=== PATIENT | male | born 1975 | race Caucasian/White ===

== ENCOUNTER → 2017-10-30 17:11 | Emergency (ER) | payer BC ==
[~2017-10-30 17:11] MED LIST: Amoxicillin/Clavulanate TAB* 875 MG PO ONE; Tetan/Diph/Pertus SYR(Tdap)* 0.5 ML SYR(BOOSTRIX) use SYR IM ONE
--- NOTE | 2017-10-30 17:35 | ED ---
Laceration/Wound HPI - HPI Summary HPI Summary: This patient is a 42 year old M [facility] [place] [place] by a woman with a chief complaint of left 5th finger laceration that occurred 3 hours ago. Pt was holding onto a fishing wire and it slid and cut his left hand. Pt reports that he could see bone at the time. The patient rates the pain 7/10 in severity. At the time of the injury, the pt applied antibiotic ointment and wrapped it up tightly. Pt stated that his last tetanus was just over 5 years ago and requests another one. No SHx of tobacco or EtOH. No other injuries reported. - History of Current Complaint Stated Complaint: LT HAND LACERATION Time Seen by Provider: 10/30/17 17:23 Hx Obtained From: Patient Mechanism of Injury: Sharp/Blunt Trauma - left pinkey Onset/Duration: Sudden Onset Onset Severity: Moderate Current Severity: Moderate Pain Intensity: 7 Pain Scale Used: 0-10 Numeric Associated Signs & Symptoms: Bruising - Allergy/Home Medications Allergies/Adverse Reactions: Allergies Allergy/AdvReac Type Severity Reaction Status Date / Time citalopram [From Celexa] Allergy Palpitation Verified 10/30/17 17:16 s morphine Allergy Nausea And Verified 10/30/17 17:16 Vomiting PMH/Surg Hx/FS Hx/Imm Hx History: Denies: Hx Dialysis Musculoskeletal History: Reports: Other Musculoskeletal History - previous right finger laceration EENT History: Denies: Hx Deafness Neurological History: Denies: Hx Dementia Infectious Disease History: No Infectious Disease History: Denies: Traveled Outside the [place] in Last 30 Days - Social History Alcohol Use: None Hx Substance Use: No Hx Tobacco Use: No Smoking Status (MU): Never Smoked Tobacco Review of Systems Positive: Other - left hand laceration Positive: Bruising - left hand All Other Systems Reviewed And Are Negative: Yes Physical Exam - Summary Physical Exam Summary: Appearance: Well appearing, no pain distress Skin: warm, dry, reflects adequate perfusion. 2 cm linear laceration in the volar DIP crease of the left small finger, no tendon injury. Intact tendon function. Minimal active bleeding. Head/face: normal Eyes: EOMI, JOHNNY ENT: normal Neck: supple, non-tender Respiratory: CTA, breath sounds present. Lungs clear. Cardiovascular: Pulses symmetrical . Tachycardic. Abdomen: non-tender, soft Bowel Sounds: present Musculoskeletal: normal, strength/ROM intact. Neuro: normal, sensory motor intact, A&Ox3 Triage Information Reviewed: Yes Vital Signs On Initial Exam: Initial Vitals Temp Pulse Resp BP Pulse Ox 98.4 F 103 18 164/106 97 10/30/17 17:13 10/30/17 17:13 10/30/17 17:13 10/30/17 17:13 10/30/17 17:13 Vital Signs Reviewed: Yes Procedures - Laceration/Wound Repair 1 Location: upper extremity - left pinkey Description: Linear - 2 cm Anesthesia: 1.0%, Lido - 6cc Length, Depth and Shape: 2cm Irrigated w/ Saline (ccs): 1,000 Laceration/Wound Explored: clean Suture Type: Prolene - 4-O (2) 1 horozontal mattress, 1 simple interrupted, Vicryl - 4-O (2) Number of Sutures: 4 Layer Closure?: Yes Sterile Dressing Applied?: Yes - zeroform gauze, 2 gauze over that Diagnostics - Vital Signs Vital Signs Temp Pulse Resp BP Pulse Ox 10/30/17 17:13 98.4 F 103 18 164/106 97 - Laboratory Lab Statement: Any lab studies that have been ordered have been reviewed, and results considered in the medical decision making process. Laceration Repair Course/Dx - Course Course Of Treatment: Patient's tetanus was updated. He was irrigated extensively after digital block and repaired. Dress with Xeroform and tube gauze. Follow-up for suture removal. Tendon and neurologic function intact. - Clinical Impression Provider Diagnoses: Finger laceration Discharge - Sign-Out/Discharge Documenting (check all that apply): Patient Departure - Discharge - Discharge Plan Condition: Improved Disposition: HOME Patient Education Materials: Finger Laceration (ED) Referrals: No Primary Care Phys,NOPCP [Primary Care Provider] - Additional Instructions: Sutures out in 10 daysurgent care or your doctor can do this. Return with concerns for infection, worse or other concerns. Dress with antibiotic gauze or antibiotic ointment and Band-Aid daily. - Billing Disposition and Condition Condition: IMPROVED Disposition: Home
[2017-10-30 18:20] VITALS: BP 140/92
== END | disposition home or self-care (01) ==
LOC: ED 17:11
DX: S61.217A Laceration without foreign body of left little finger without damage to nail, initial encounter (principal); W26.8XXA Contact with other sharp object(s), not elsewhere classified, initial encounter; Y92.9 Unspecified place or not applicable; Z23 Encounter for immunization; Z88.5 Allergy status to narcotic agent; Z88.8 Allergy status to other drugs, medicaments and biological substances
CPT/HCPCS: 12001; 90471; 90715; 99282; A9270-GY